=== PATIENT | female | born 1985 | race Caucasian/White ===

== ENCOUNTER 2018-05-09 00:34 | Emergency (ER) | END 2018-05-09 04:06 | disposition home or self-care (01) ==

== ENCOUNTER 2018-09-09 19:43 | Emergency (ER) | payer OTHER ==
[~2018-09-09] VITALS: Ht 165.1 cm; Wt 74.4 kg
[~2018-09-09 19:43] MED LIST: HYDR-4011 PO; IBUP-1542 PO
[2018-09-09 19:52] VITALS: BP 104/58; PULSE 68; RESP 18; Ht 165.1 cm; Wt 74.4 kg
[2018-09-09] MEDS ORDERED: ACETAMINOPHEN 325 MG TAB PO ONE (21:00)
[2018-09-09] MEDS ORDERED: LIDOCAINE 1% (MDV) 20 ML INJ SC ONE (21:00)
[2018-09-09] MEDS ORDERED: ACET500C5 PO (21:35)
[2018-09-09] MEDS ORDERED: NEOM28OI2 TP (21:35)
--- NOTE | 2018-09-09 21:38 | ERD ---
ER Documentation Chief Complaint Chief Complaint left great toe pain x 2 days HPI 33-year-old female presents with pain in the left big toe for the last 2 days. Started after manicure appears in the bilateral edges of the nail. She has some mild redness. She has discharge, fevers, history of trauma. ROS All systems reviewed and are negative except as per history of present illness. Medications Home Meds Active Scripts Neomycin Starr/Bacitrac Zn/Poly (Triple Antibiotic Ointment) 28 Gm Oint...g., 28 GM TP TID for 7 Days Prov:REJI MOE MD 09/09/18 Acetaminophen* (Tylophen*) 500 Mg Capsule, 1 CAP PO Q6H PRN for PAIN AND OR ELEVATED TEMP, #18 CAP Prov:REJI MOE MD 09/09/18 Hydrocodone/Acetaminophen ([place] 5-325 Tablet) 1 Each Tablet, 1 TAB PO Q6H PRN for SEVERE PAIN LEVEL 7-10, #7 TAB Prov:EDIS RAMESH NP 05/09/18 Ibuprofen* (Motrin*) 600 Mg Tab, 600 MG PO Q6H PRN for PAIN AND OR ELEVATED TEMP, #30 TAB Prov:EDIS RAMESH NP 05/09/18 Reported Medications [none] Unknown Strength No Conflict Check 05/09/18 Allergies Allergies: Coded Allergies: No Known Allergy (Unverified , 05/09/18) PMhx/Soc History of Surgery: Yes (C SEC X'S 1) Anesthesia Reaction: No Hx Miscellaneous Medical Probl: Yes (anemia) Hx Alcohol Use: No Hx Substance Use: No Hx Tobacco Use: No Smoking Status: Never smoker FmHx Family History: No diabetes, No coronary disease, No other Physical Exam Vitals Vital Signs Date Temp Pulse Resp B/P (MAP) Pulse Ox O2 O2 Flow FiO2 Time Delivery Rate 09/09/18 97.3 68 18 104/58 100 19:52 (73) Physical Exam Const: No acute distress Head: Atraumatic Eyes: Normal Conjunctiva ENT: Normal External Ears, Nose and Mouth. Neck: Full range of motion. No meningismus. Resp: Clear to auscultation bilaterally Cardio: Regular rate and rhythm, no murmurs Abd: Soft, non tender, non distended. Normal bowel sounds Skin: No petechiae or rashes Back: No midline or flank tenderness Ext: No cyanosis, or edema. Mildly ingrown bilateral edges of the left great toenail. Mild surrounding redness. No discharge. No bony tenderness or deformities. Neur: Awake and alert Psych: Normal Mood and Affect Results 24 hrs Current Medications Medications Dose Sig/Allen Start Time Status Last (Trade) Ordered Route PRN Stop Time Admin Dose Reason Admin 650 mg ONCE ONCE 09/09/18 DC Acetaminophen PO 21:00 (Tylenol 09/09/18 21:01 Tab) Lidocaine 20 ml ONCE ONCE 09/09/18 DC (Xylocaine SC 21:00 1% (Mdv) 20 09/09/18 21:01 ml) Procedures/MDM Patient presents with signs and symptoms of left big toe ingrown toenail. There is no significant cellulitis, signs to suggest osteomyelitis, fracture, dislocation, additional complications. Procedure note-patient is given Tylenol for pain. Via sterile technique 3 cc lidocaine was used to perform digital block. Anesthesia was obtained. Ingrown portion of the nail removed using clamps and scissors. Patient tolerated procedure well and wound was dressed. He will be discharged home with instruction for wound care, Tylenol, and antibiotic topically. She is advised to return for redness, fevers, new worsening symptoms. The patient was stable with no new complaints during the ER course. Clinically, there is no current evidence to suggest meningitis, sepsis, acute abdomen, pneumonia, stroke, acute coronary syndrome, pulmonary embolism, aortic dissection or any other emergent condition appearing to require further evaluation or hospitalization. Patient counseled regarding my diagnostic impression and care plan. Prior to discharge all questions answered. Pt agrees with treatment plan and understands strict return precautions. Pt is instructed to follow up with primary care provider within 24-48 hours. Precautionary ins tructions provided including instructions to return to the ER if not improving or for any worsening or changing symptoms or concerns. Departure Diagnosis: Primary Impression: Ingrown toenail Condition: Stable Patient Instructions: Ingrown Toenail, Excised Additional Instructions: Cheque otro vez con starr doctor primario en el proximo miller or regresa para mas o nueva simptomas. REJI MOE MD Sep 09, 2018 21:38
== END 2018-09-09 21:46 | disposition home or self-care (01) ==
LOC: FTE 19:43
DX: L60.0 Ingrowing nail (principal)
CPT/HCPCS: 11765; Z7502; Z7610

== ENCOUNTER 2018-10-31 17:51 | Emergency (ER) | payer OTHER ==
[~2018-10-31] VITALS: Wt 74.1 kg
[~2018-10-31 17:51] MED LIST changes: +ACET500C5 PO; +NEOM28OI2 TP
[2018-10-31 17:53] VITALS: BP 131/64; PULSE 81; RESP 18
--- NOTE | 2018-10-31 18:55 | ERD ---
ER Documentation Chief Complaint Chief Complaint VA INGROWN TOE NAIL HPI Patient is a 33 years old female presenting to the clinic for bilateral ingrown toenail X 2 days. Patient reports pain on the medial aspect of bilateral hallux. Patient denies fever, chills, night sweats. ROS All systems reviewed and are negative except as per history of present illness. Medications Home Meds Active Scripts Ibuprofen* (Motrin*) 800 Mg Tab, 800 MG PO Q6, #30 TAB Prov:NOEMY CUELLO PA-C 10/31/18 Cephalexin* (Keflex*) 500 Mg Capsule, 500 MG PO QID for 5 Days, CAP Prov:NOEMY CUELLO PA-C 10/31/18 Neomycin Starr/Bacitrac Zn/Poly (Triple Antibiotic Ointment) 28 Gm Oint...g., 28 GM TP TID for 7 Days Prov:REJI MOE MD 09/09/18 Acetaminophen* (Tylophen*) 500 Mg Capsule, 1 CAP PO Q6H PRN for PAIN AND OR ELEVATED TEMP, #18 CAP Prov:REJI MOE MD 09/09/18 Hydrocodone/Acetaminophen ([place] 5-325 Tablet) 1 Each Tablet, 1 TAB PO Q6H PRN for SEVERE PAIN LEVEL 7-10, #7 TAB Prov:EDIS RAMESH NP 05/09/18 Ibuprofen* (Motrin*) 600 Mg Tab, 600 MG PO Q6H PRN for PAIN AND OR ELEVATED TEMP, #30 TAB Prov:EDIS RAMESH NP 05/09/18 Reported Medications [none] Unknown Strength No Conflict Check 05/09/18 Allergies Allergies: Coded Allergies: No Known Allergy (Unverified , 05/09/18) PMhx/Soc History of Surgery: Yes (C SEC X'S 1) Anesthesia Reaction: No Hx Miscellaneous Medical Probl: Yes (anemia) Hx Alcohol Use: No Hx Substance Use: No Hx Tobacco Use: No Physical Exam Vitals Vital Signs Date Temp Pulse Resp B/P (MAP) Pulse Ox O2 O2 Flow FiO2 Time Delivery Rate 10/31/18 99.5 81 18 131/64 99 17:53 (86) Physical Exam Const: No acute distress Head: Atraumatic Eyes: Normal Conjunctiva Resp: Clear to auscultation bilaterally Cardio: Regular rate and rhythm, no murmurs Ext: No cyanosis, or edema Neur: Awake and alert Psych: Normal Mood and Affect Left hallux exam: Ingrown toe nail on medial aspect that is tender to palpation. No pus drainage, induration noted. Right Hallux exam: Ingrown toe nail on medial aspect that is tender to palp ation. No pus drainage, induration noted. Results 24 hrs Current Medications Medications Dose Sig/Allen Start Time Status Last (Trade) Ordered Route PRN Stop Time Admin Dose Reason Admin Lidocaine 20 ml ONCE ONCE 10/31/18 DC (Xylocaine SC 19:00 1% (Mdv) 20 10/31/18 19:01 ml) Procedures/MDM Patient was seen and evaluated for ingrown toe nail. Bilateral hallux digit block with 1%lidocaine followed by successful extraction performed. Patient tolerated the procedure well. Dressing applied. Patient is stable and ready for discharge. Patient will go home with Keflex. Departure Diagnosis: Primary Impression: Ingrown toenail of both feet Condition: Stable Patient Instructions: Understanding Ingrown Toenails Referrals: [facility] Additional Instructions: Paciente aconseja volver a Departamento de urgencias inmediatamente para sntomas nuevos o que empeoran . Paciente aconseja posteriores con el PCP en 2-3 benites . Paciente verbaliza la comprehensin y est de acuerdo con el tratamiento y el curso de accin. Si el paciente no tiene ninguna de atencin primaria pueden seguir con [facility] [address] [place] [address] o [facility] + [address] [address] NOEMY CUELLO PA-C Oct 31, 2018 18:55
[2018-10-31] MEDS ORDERED: LIDOCAINE 1% (MDV) 20 ML INJ SC ONE (19:00)
[2018-10-31] MEDS ORDERED: IBUP800T48 PO (19:23)
[2018-10-31] MEDS ORDERED: CEPH-443 PO (19:23)
== END 2018-10-31 19:40 | disposition home or self-care (01) ==
LOC: FTE 17:51
DX: L60.0 Ingrowing nail (principal)
CPT/HCPCS: 11750; Z7502; Z7610